=== PATIENT | male | born 1990 | race Caucasian/White ===

== ENCOUNTER 2017-09-08 18:00 | Emergency (ER) | payer OTHER ==
[2017-09-08] MEDS ORDERED: NS 1,000 ML IV ONE (18:14)
--- NOTE | 2017-09-08 18:17 | EDPHY ---
H & P Stated Complaint: r sided abd pain since monday/nausea Time Seen by Provider: 09/08/17 18:08 HPI/ROS: CHIEF COMPLAINT: Right flank pain HISTORY OF PRESENT ILLNESS: Patient is a 27-year-old healthy man with no surgical history who comes to the emergency department complaining of right flank pain. He states that it began on Monday and he thought that it was a bruise. It seemed to improved to some degree but was still present throughout the week and then last night he and his were "fooling around" when she touched it accidentally any and severe pain. He states that he then could not sleep for the rest tonight. He has felt warm but has not had a fever. No vomiting or diarrhea. REVIEW OF SYSTEMS: Constitutional: denies: chills, fever, recent illness, recent injury EENTM: denies: blurred vision, double vision, nose congestion Respiratory: denies: cough, shortness of breath Cardiac: denies: chest pain, irregular heart rate, lightheadedness, palpitations Gastrointestinal/Abdominal: See HPI Genitourinary: denies: dysuria, frequency, hematuria, pain Musculoskeletal: denies: joint pain, muscle pain Skin: denies: lesions, rash, jaundice, bruising Neurological: denies: headache, numbness, paresthesia, tingling, dizziness, weakness Hematologic/Lymphatic: denies: blood clots, easy bleeding, easy bruising Immunologic/allergic: denies: HIV/AIDS, transplant EXAM: GENERAL: Well-appearing, well-nourished and in no acute distress. HEAD: Atraumatic, normocephalic. EYES: Pupils equal round and reactive to light, extraocular movements intact, sclera anicteric, conjunctiva are normal. ENT: TMs normal, nares patent, oropharynx clear without exudates. Moist mucous membranes. NECK: Normal range of motion, supple without lymphadenopathy or JVD. LUNGS: Breath sounds clear to auscultation bilaterally and equal. No wheezes rales or rhonchi. HEART: Regular rate and rhythm without murmurs, rubs or gallops. ABDOMEN: Tender right flank region, no tenderness to the right lower quadrant or right upper quadrant is sterilely. Pain with rebound BACK: No CVA tenderness, no spinal tenderness, step-offs or deformities EXTREMITIES: Normal range of motion, no pitting or edema. No clubbing or cyanosis. NEUROLOGICAL: Cranial nerves II through XII grossly intact. Normal speech, normal gait. 5/5 strength, normal movement in all extremities, normal sensation PSYCH: Normal mood, normal affect. SKIN: Warm, dry, normal turgor, no visible rashes or lesions. Source: Patient Exam Limitations: No limitations - Personal History Current Tetanus/Diphtheria Vaccine: Yes - Medical/Surgical History Hx Asthma: No Hx Chronic Respiratory Disease: No Hx Diabetes: No Hx Cardiac Disease: No Hx Renal Disease: No Hx Cirrhosis: No Hx Alcoholism: No Hx HIV/AIDS: No Hx Splenectomy or Spleen Trauma: No Other PMH: denies - Family History Significant Family History: No pertinent family hx - Social History Smoking Status: Current some day smoker Alcohol Use: Sober Drug Use: None Constitutional: Initial Vital Signs Temperature (C) 36.5 C 09/08/17 18:02 Heart Rate 78 09/08/17 18:02 Respiratory Rate 16 09/08/17 18:02 Blood Pressure 137/77 H 09/08/17 18:02 O2 Sat (%) 96 09/08/17 18:02 O2 Delivery Mode Room Air Allergies/Adverse Reactions: No Known Allergies Allergy (Unverified 09/08/17 18:02) Home Medications: Medication Instructions Recorded Cephalexin [Keflex] 500 mg PO TID #21 cap 09/08/17 Hydrocodone/APAP 5/325 [Roscoe 1 - 2 tab PO Q4H PRN #10 tab 09/08/17 5/325 (RX)] Medical Decision Making ED Course/Re-evaluation: We discussed the patient's CT scan and lab work which are overall reassuring. He does have a slightly elevated white blood cell count. We discussed possibilities from here. On re-evaluation he is primarily right upper quadrant pain although it is somewhat lateral. I did not see any stones on CT scan or bedside ultrasound but will order a formal ultrasound. He also has a few white cells in his urine but denies dysuria. 8:50 p.m. the patient's ultrasound is also unremarkable. He has a few white cells in his urine as well as a slightly elevated white blood cell count. He has right flank pain. He has no stranding around this kidney or dysuria or hematuria. I will treat him for possible urinary tract infection or pyelo. We discussed the fact that the diagnosis is still somewhat unclear but this seems to be the most reasonable course. The patient does not wish to be admitted. He is concerned about cost. I recommended he follow up in 24 hr either here with his primary. He understands and agrees with this. Differential Diagnosis: Partial list of the Differential diagnosis considered include but were not limited to; urinary tract infection, pyelonephritis, kidney stone, biliary disease, appendicitis, constipation and although unlikely based on the history and physical exam, I also considered ischemic bowel, volvulus, hepatitis. I discussed these differential diagnoses and the plan with the patient as well as the usual and expected course. The patient understands that the diagnosis is provisional and that in medicine we are not always correct and that further workup is often warranted. Usual and customary warnings were given. All of the patient's questions were answered. The patient was instructed to return to the emergency department should the symptoms at all worsen or return, otherwise to followup with the physician as we discussed. - Data Points Laboratory Results: Laboratory Results 09/08/17 18:10 09/08/17 18:10 Medications Given: Discontinued Medications Hydrocodone Bitart/Acetaminophen (Roscoe 5/325mg Prepack#6) 1 btl TAKEHOME EDNOW ONE Stop: 09/08/17 21:00 Last Admin: 09/08/17 21:33 Dose: 1 btl Hydromorphone HCl (Dilaudid) 1 mg IVP EDNOW ONE Stop: 09/08/17 18:15 Last Admin: 09/08/17 18:57 Dose: Not Given Sodium Chloride (Ns) 1,000 mls @ 0 mls/hr IV EDNOW ONE; Wide Open PRN Reason: Protocol Stop: 09/08/17 18:15 Last Admin: 09/08/17 18:27 Dose: 1,000 mls Cefepime HCl 1 gm/ Sterile (Water) 11.3 mls @ 135.6 mls/hr IV EDNOW ONE PRN Reason: Protocol Stop: 09/08/17 21:00 Last Admin: 09/08/17 21:22 Dose: 11.3 mls Ondansetron HCl (Zofran) 4 mg IVP EDNOW ONE Stop: 09/08/17 18:15 Last Admin: 09/08/17 18:58 Dose: Not Given Departure - Departure Disposition: Home, Routine, Self-Care Clinical Impression: Acute right flank pain Condition: Fair Instructions: Hydrocodone/Acetaminophen (By mouth), Flank Pain (ED) Referrals: TREVOR TRAVIS [Primary Care Provider] - As per Instructions ED,PHYSICIAN REUBEN [Medical Doctor] - 1 day, if not improved Prescriptions: Cephalexin [Keflex] 500 mg PO TID #21 cap Hydrocodone/APAP 5/325 [Roscoe 5/325 (RX)] 1 - 2 tab PO Q4H PRN #10 tab PRN Reason: Pain, Moderate
[2017-09-08 18:27] LABS: PLATELET COUNT 291 10^3/uL (150-400)
[2017-09-08] MEDS: HYDROmorphONE/DILAUDID 2 MG/ML INJ IVP ONE ×2 (18:27→18:57)
[2017-09-08] MEDS: ONDANSETRON 4 MG/2 ML VIAL IVP ONE ×2 (18:29→18:58)
[2017-09-08] MEDS ORDERED: IOPAMIDOL (ISOVUE-300) 100 ML BTL ONE (18:41)
[2017-09-08] MEDS ORDERED: CEFEPIME HCL 1 GM in STERILE WATER INJ 11.3 ML IV ONE (20:56)
[2017-09-08] MEDS ORDERED: HYDROCOD/APAP 5/325 PREPACK#6 BTL TAKEHOME ONE (20:59)
[2017-09-08 21:38] VITALS: BP 117/75
== END 2017-09-08 21:38 | disposition home or self-care (01) ==
DX: R10.9 Unspecified abdominal pain (principal); F17.200 Nicotine dependence, unspecified, uncomplicated; E86.9 Volume depletion, unspecified
CPT/HCPCS: 96374; J0692; J1170; J2405; Q9967